=== PATIENT | male | born 2000 | race Caucasian/White ===

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

== ENCOUNTER → 2022-02-23 | Outpatient (CLI) | payer BC, MEDICAID ==
[2022-02-23 17:23] LABS: HEMATOCRIT 39.4 % (42.0-52.0); HEMOGLOBIN 13.2 g/dl (13.5-17.5); MEAN CORPUSCULAR HEMOGLOBIN 27.4 pg (27.0-33.0); MEAN CORPUSCULAR HGB CONC 33.5 g/dl (32.0-36.5); MEAN CORPUSCULAR VOLUME 81.7 fl (80.0-96.0); PLATELET COUNT, AUTOMATED 210 10^3/uL (150-450); RED BLOOD COUNT 4.82 10^6/uL (4.30-6.10); WHITE BLOOD COUNT 12.7 10^3/uL (4.0-10.0)
[2022-02-23 17:39] LABS: ALT/SGPT 30 U/L (12-78); BILIRUBIN,DIRECT 0.1 MG/DL (0.0-0.2); BILIRUBIN,TOTAL 0.4 MG/DL (0.2-1.0); BLOOD UREA NITROGEN 13 MG/DL (7-18); CALCIUM LEVEL 9.1 MG/DL (8.5-10.1); CARBON DIOXIDE LEVEL 30 MEQ/L (21-32); CHLORIDE LEVEL 106 MEQ/L (98-107); GLUCOSE, FASTING 97 MG/DL (70-100); POTASSIUM SERUM 3.7 MEQ/L (3.5-5.1); SODIUM LEVEL 139 MEQ/L (136-145); TOTAL PROTEIN 6.7 GM/DL (6.4-8.2)
== END ==
LOC: M PLALAB 15:11
PROVIDERS: ATTEND Emergency Medicine
DX: F19.10 Other psychoactive substance abuse, uncomplicated (principal)

== ENCOUNTER 2022-08-12 22:07 | Emergency (ER) | payer BC, MEDICAID ==
[~2022-08-12] VITALS: Ht 170.2 cm; Wt 87.0 kg
[2022-08-13] MEDS ORDERED: LIDOCAINE VISCOUS 2% SOLN 15ML UDC SS ONE (01:20)
[2022-08-13] MEDS ORDERED: NAPROXEN 250 MG TAB PO ONE (01:20)
[2022-08-13] MEDS ORDERED: NAPR-837 PO (01:21)
[2022-08-13] MEDS ORDERED: LIDO2SOL17 PO (01:21)
[2022-08-13 01:38] VITALS: BP 122/65
== END 2022-08-13 01:40 | disposition home or self-care (01) ==
LOC: M ED 22:07
DX: J02.9 Acute pharyngitis, unspecified (principal)

== ENCOUNTER 2023-01-29 19:32 | Emergency (ER) | payer BC, MEDICAID ==
[~2023-01-29] VITALS: Ht 167.6 cm; Wt 82.1 kg
[~2023-01-29 19:32] MED LIST: LIDO15SO PO; NAPR-837 PO
[2023-01-29 19:33] VITALS: BP 137/74
[2023-01-29] MEDS ORDERED: OMEP40CA5 (19:39)
[2023-01-29 21:37] LABS: GC DNA AMPLIFICATION NEGATIVE (NEGATIVE)
[2023-01-29] MEDS ORDERED: DOXY-443 PO (22:39)
[2023-01-29] MEDS ORDERED: DOXYCYCLINE HYCLATE 100MG TABLET PO ONE (22:40)
== END 2023-01-29 22:50 | disposition home or self-care (01) ==
LOC: M ED 19:32
DX: Z20.2 Contact with and (suspected) exposure to infections with a predominantly sexual mode of transmission (principal); K21.9 Gastro-esophageal reflux disease without esophagitis; Z79.83 Long term (current) use of bisphosphonates; Z79.899 Other long term (current) drug therapy

== ENCOUNTER 2024-02-01 13:20 | Emergency (ER) | payer MEDICAID, SELFPAY ==
[~2024-02-01] VITALS: Ht 162.6 cm; Wt 66.3 kg
[~2024-02-01 13:20] MED LIST changes: +DOXY-443 PO; -LIDO15SO PO; +LIDO15SO8 PO; +OMEP40CA5
[2024-02-01 14:40] LABS: BASO % 0.4 % (0.0-1.0); EOS # 0.2 10^3/uL (0.0-0.5); EOS % 3.1 % (0.0-3.0); HEMATOCRIT 48.2 % (42.0-52.0); HEMOGLOBIN 16.1 g/dl (13.5-17.5); LYMPH # 2.1 10^3/uL (1.5-5.0); MEAN CORPUSCULAR HEMOGLOBIN 28.1 pg (27.0-33.0); MEAN CORPUSCULAR HGB CONC 33.4 g/dl (32.0-36.5); MEAN CORPUSCULAR VOLUME 84.3 fl (80.0-96.0); MONO # 0.4 10^3/uL (0.0-0.8); MONO % 6.3 % (2.0-8.0); NEUTROPHILS # 4.1 10^3/uL (1.5-8.5); NEUTROPHILS % 59.1 % (36.0-66.0); PLATELET COUNT, AUTOMATED 233 10^3/uL (150-450); RED BLOOD COUNT 5.72 10^6/uL (4.30-6.10); WHITE BLOOD COUNT 6.9 10^3/uL (4.0-10.0)
[2024-02-01 15:20] LABS: LIPASE 24 U/L (12-53)
[2024-02-01 15:23] LABS: ALBUMIN 4.3 G/DL (3.2-5.2); ALKALINE PHOSPHATASE 93 U/L (46-116); ALT/SGPT 17 U/L (7.0-40); AST/SGOT 17 U/L (<34); BILIRUBIN,DIRECT 0.3 MG/DL (<0.4); BILIRUBIN,TOTAL 1.1 MG/DL (0.3-1.2); BLOOD UREA NITROGEN 8 MG/DL (9-23); CALCIUM LEVEL 10.3 MG/DL (8.5-10.1); CARBON DIOXIDE LEVEL 26 MMOL/L (20-31); CHLORIDE LEVEL 105 MMOL/L (98-107); CREATININE FOR GFR 0.62 MG/DL (0.70-1.30); GLOMERULAR FILTRATION RATE > 60.0 (>60); GLUCOSE, FASTING 93 MG/DL (60-100); POTASSIUM SERUM 4.4 MMOL/L (3.5-5.1); SODIUM LEVEL 137 MMOL/L (136-145); TOTAL PROTEIN 7.3 G/DL (5.7-8.2)
[2024-02-01] MEDS ORDERED: ISOVUE-370 76% 100ML VIAL As Ordered ONE (15:26)
[2024-02-01 15:34] VITALS: BP 114/58; TEMP 98.6; O2SAT 98
[2024-02-01] MEDS ORDERED: ONDA4TAB6 PO (16:02)
[2024-02-01] MEDS ORDERED: FAMO40TA3 PO (16:02)
== END 2024-02-01 16:20 | disposition home or self-care (01) ==
LOC: M ED 13:20
DX: R11.2 Nausea with vomiting, unspecified (principal); R19.7 Diarrhea, unspecified; K21.9 Gastro-esophageal reflux disease without esophagitis; F17.290 Nicotine dependence, other tobacco product, uncomplicated; F10.10 Alcohol abuse, uncomplicated; Z79.899 Other long term (current) drug therapy
CPT/HCPCS: 36415; 74177; 80048; 80076; 83690; 85025; 99284; Q9967